=== PATIENT | female | born 1960 | race Caucasian/White ===

== ENCOUNTER 2020-05-03 10:29 | Observation (INO) | payer BC ==
[2020-05-03] MEDS ORDERED: Sodium Chloride 0.9% 10 ML Syringe FLUSH PRN (10:38)
--- NOTE | 2020-05-03 10:55 | EDM.PDOC ---
ED HPI GENERAL MEDICAL PROBLEM - General Chief Complaint: Chest Pain Stated Complaint: Chest Pain Time Seen by Provider: 05/03/20 10:38 Source of Information: Reports: Patient History Limitations: Reports: No Limitations - History of Present Illness INITIAL COMMENTS - FREE TEXT/NARRATIVE: Patient comes to ER with what she feels is a return of her Covid symptoms that she experienced at the end of Feb/early March when she was found to have the infection. Increased SOB since Friday. Chest ache left side today. No change in discomfort with chest palpation/deep breath/positional change. Has felt hot at times but no fever. Still has cough. Nausea but no emesis/bowel change. Has continued neuropathic discomfort inner forearms that radiates down towards hands. Initially pain was an 8 but is now a 2/dull ache only. - Related Data Allergies Allergy/AdvReac Type Severity Reaction Status Date / Time No Known Allergies Allergy Verified 05/03/20 10:30 Home Meds: Home Meds Omeprazole 20 mg PO DAILY 01/22/14 [History] hydrOXYzine HCL [hydrOXYzine] 20 mg PO Q8H PRN 01/22/14 [History] Albuterol/Ipratropium [DuoNeb 3.0-0.5 MG/3 ML] 3 ml NEB Q6HRRT #30 neb 02/19/16 [Rx] Amoxicillin/Clavulanate K [Augmentin 875 MG/125 MG] 1 tab PO Q12HR #20 tablet 02/19/16 [Rx] Fluconazole [Diflucan] 150 mg PO DAILY PRN #3 tablet 02/19/16 [Rx] Sertraline [Zoloft] 75 mg PO BEDTIME 02/19/16 [History] atenoloL [Tenormin] 25 mg PO DAILY 02/19/16 [History] guaiFENesin/Dextromethorphan [Mucinex Dm ER 1,200-60 mg Tab] 1 each PO BID #20 tbmp.12hr 02/19/16 [Rx] Past Medical History HEENT History: Reports: Allergic Rhinitis, Impaired Vision, Other (See Below) Other HEENT History: Contact lenses, glasses Cardiovascular History: Reports: Arrhythmia, CAD, Heart Murmur, Hypertension, Syncope, Other (See Below) Other Cardiovascular History: Mild aortic valve insufficiency and tricuspid valve insufficiency by echocardiogram, bradycardia with previous syncopal episode requiring hospitalization on 01/02/10, first degree AV block on 11/20/11 Respiratory History: Reports: Bronchitis, Recurrent, Pneumonia, Recurrent, Other (See Below) Other Respiratory History: Despite chest x-ray findings no history of asthma with previous negative PFTs 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: Dysfunctional Uterine Bleeding, Fibroids, Other 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: Surgical menopause as below Musculoskeletal History: Reports: Arthritis, Back Pain, Chronic, Fracture, Osteoarthritis, Other (See Below) Other Musculoskeletal History: Right-sided Bansal's cyst, right distal fibular fracture on 01/22/14, scoliosis, patellar chondromalacia with grade 1 strain/tear of the medial collateral ligament of the left knee by MRI as below Neurological History: Reports: Brain Injury, Concussion, Headaches, Chronic, Migraines, Other (See Below) Other Neuro History: 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 secondary to syncopal episode Psychiatric History: Reports: Anxiety, Depression, Other (See Below) Other Psychiatric History: Chronic insomnia Endocrine/Metabolic History: Reports: Other (See Below) Other Endocrine/Metabolic History: 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 - Infectious Disease History Infectious Disease History: Reports: Chicken Pox, Mumps, Other (See Below) Other Infectious Disease History: swine flu in about 2006 - Past Surgical History HEENT Surgical History: Reports: Adenoidectomy, Tonsillectomy, Other (See Below) GI Surgical History: Reports: Appendectomy, Cholecystectomy, Other (See Below) Female Surgical History: Reports: Hysterectomy, Other (See Below) Musculoskeletal Surgical History: Reports: Carpal Tunnel, Other (See Below) - Past Imaging History Past Imaging History: Reports: Cardiac Echo, CAT Scan, Mammogram, MRI, PFT, Stress Testing, Ultrasound, Venous Doppler, Other (See Below) Social & Family History - Family History Cardiac: Reports: Bypass, CAD, High Cholesterol, Hypertension, CA, Other (See Below) Other Cardiac Family History: Father with initial CA in his 50s with 4 vessel CABG in his late 50s early 60s, paternal grandfather with fatal CA in his 60s, paternal aunt with three-vessel CABG in her late 50s, sister with hyperlipidemia, hypertension in mother and 2 sisters, Respiratory: Reports: Asthma, Other (See Below) Other Respiratory Family Hisory: Son with asthma Neurological: Reports: Migraines, Other (See Below) Other Neurological Family History: migraine headaches in sister, son, and daughter Psychiatric: Reports: Anxiety, Depression, Other (See Below) Other Psychiatric Family History: Daughter with severe anxiety aggression disorder Endocrine/Metabolic: Reports: Hypothyroidism, Other (See Below) Other Endocrine/Metabolic Family History: Mother with hypothyroidism Oncologic: Reports: Breast, Other (See Below) Other Oncologic Family History: Paternal grandmother with breast cancer - Caffeine Use Caffeine Use: Reports: Soda (One soda per day). Denies: Coffee, Energy Drinks, Tea - Living Situation & Occupation Living situation: Reports: , Alone Occupation: Employed ED ROS GENERAL - Review of Systems Review Of Systems: Comprehensive ROS is negative, except as noted in HPI. ED EXAM, GENERAL - Physical Exam Exam: See Below Exam Limited By: No Limitations General Appearance: Alert, WD/WN, Anxious, Obese Eye Exam: Bilateral Eye: EOMI, PERRL Ears: Normal External Exam, Normal Canal, Hearing Grossly Normal Nose: No: Nasal Deformity, Nasal Swelling, Nasal Drainage Throat/Mouth: Normal Lips, Normal Voice, No Airway Compromise Head: Atraumatic, Normocephalic Neck: Normal Inspection, Supple, Non-Tender, Full Range of Motion Respiratory/Chest: No Respiratory Distress, Lungs Clear, Normal Breath Sounds, No Accessory Muscle Use, Chest Non-Tender Cardiovascular: Normal Peripheral Pulses, Regular Rate, Rhythm, No Murmur GI/Abdominal: Normal Bowel Sounds, Soft, Non-Tender, No Distention (Female) Exam: Deferred Rectal (Female) Exam: Deferred Back Exam: No: CVA Tenderness (L), CVA Tenderness (R), Muscle Spasm, Paraspinal Tenderness, Vertebral Tenderness Extremities: Normal Range of Motion, Normal Capillary Refill Neurological: Alert, Oriented, Normal Cognition, Normal Gait, Other (equal tone/strength bilat) Psychiatric: Normal Affect, Normal Mood Skin Exam: Warm, Dry, Intact, Normal Color #1 Interpretation EKG Date: 05/03/20 Time: 10:31 Rhythm: Other (sinus bradycardia) Rate (Beats/Min): 51 [place]: Normal P-Wave: Present QRS: Normal ST-T: Normal QT: Normal Comparison: NA - No Prior EKG Course - Vital Signs Last Recorded V/S: Last Vital Signs Temp 36.1 C 05/03/20 10:30 Pulse 49 L 05/03/20 10:46 Resp 14 05/03/20 10:46 BP 131/51 L 05/03/20 10:46 Pulse Ox 99 05/03/20 10:46 - Orders/Labs/Meds Orders: Active Orders 24 hr Category Date Time Status EKG Documentation Completion [RC] ASDIRECTED Care 05/03/20 10:39 Active Chest 2V [CR] Stat Exams 05/03/20 10:38 Taken UA W/MICROSCOPIC [URIN] Stat Lab 05/03/20 10:38 Ordered Sodium Chloride 0.9% [Saline Flush] Med 05/03/20 10:38 Active 10 ml FLUSH ASDIRECTED PRN Saline Lock Insert [OM.PC] Stat Oth 05/03/20 10:38 Ordered Medication Orders Sodium Chloride (Saline Flush) 10 ml FLUSH ASDIRECTED PRN PRN Reason: Keep Vein Open Labs: Laboratory Tests 05/03/20 05/03/20 05/03/20 Range/Units 10:42 10:42 10:42 WBC 6.1 (4.0-10.2) K/uL RBC 4.24 (3.77-5.09) M/uL Hgb 12.7 (11.7-15.5) g/dL Hct 38.3 (34.0-46.0) % MCV 90.3 (84.0-98.0) fL MCH 30.0 (28.2-33.3) pg MCHC 33.2 (31.7-36.0) g/dL RDW 13.4 (11.2-14.1) % Plt Count 208 (150-350) K/uL Neut % (Auto) 48.1 (45.0-80.0) % Lymph % (Auto) 39.3 (10.0-50.0) % [place] % (Auto) 9.1 (2.0-14.0) % Eos % (Auto) 3.3 (0.0-5.0) % Baso % (Auto) 0.2 (0.0-2.0) % Neut # (Auto) 2.95 (1.40-7.00) K/uL Lymph # (Auto) 2.41 (0.50-3.50) K/uL [place] # (Auto) 0.56 (0.00-1.00) K/uL Eos # (Auto) 0.20 (0.00-0.50) K/uL Baso # (Auto) 0.01 (0.00-0.20) K/uL D-Dimer, Quantitative 214 (0-400) ng/mL Sodium 141 (136-145) mmol/L Potassium 3.5 (3.5-5.1) mmol/L Chloride 107 (98-107) mmol/L Carbon Dioxide 26.3 (21.0-32.0) mmol/L BUN 16 (7-18) mg/dL Creatinine 0.80 (0.51-1.17) mg/dL Est Cr Clr Drug Dosing TNP Estimated GFR (MDRD) > 60 mL/min Glucose 134 H (74-106) mg/dL Lactic Acid (0.4-2.0) mmol/L Calcium 8.2 L (8.5-10.1) mg/dL Magnesium 2.0 (1.8-2.4) mg/dL Total Bilirubin 0.3 (0.2-1.0) mg/dL AST 14 L (15-37) U/L ALT 30 (12-78) U/L Alkaline Phosphatase 78 (46-116) IU/L Troponin I 0.000 (0.000-0.056) ng/mL NT-Pro-B Natriuret Pep 402 H (0-125) pg/mL Total Protein 6.7 (6.4-8.2) g/dL Albumin 3.4 (3.4-5.0) g/dL 05/03/20 Range/Units 10:42 WBC (4.0-10.2) K/uL RBC (3.77-5.09) M/uL Hgb (11.7-15.5) g/dL Hct (34.0-46.0) % MCV (84.0-98.0) fL MCH (28.2-33.3) pg MCHC (31.7-36.0) g/dL RDW (11.2-14.1) % Plt Count (150-350) K/uL Neut % (Auto) (45.0-80.0) % Lymph % (Auto) (10.0-50.0) % [place] % (Auto) (2.0-14.0) % Eos % (Auto) (0.0-5.0) % Baso % (Auto) (0.0-2.0) % Neut # (Auto) (1.40-7.00) K/uL Lymph # (Auto) (0.50-3.50) K/uL [place] # (Auto) (0.00-1.00) K/uL Eos # (Auto) (0.00-0.50) K/uL Baso # (Auto) (0.00-0.20) K/uL D-Dimer, Quantitative (0-400) ng/mL Sodium (136-145) mmol/L Potassium (3.5-5.1) mmol/L Chloride (98-107) mmol/L Carbon Dioxide (21.0-32.0) mmol/L BUN (7-18) mg/dL Creatinine (0.51-1.17) mg/dL Est Cr Clr Drug Dosing Estimated GFR (MDRD) mL/min Glucose (74-106) mg/dL Lactic Acid 1.7 (0.4-2.0) mmol/L Calcium (8.5-10.1) mg/dL Magnesium (1.8-2.4) mg/dL Total Bilirubin (0.2-1.0) mg/dL AST (15-37) U/L ALT (12-78) U/L Alkaline Phosphatase (46-116) IU/L Troponin I (0.000-0.056) ng/mL NT-Pro-B Natriuret Pep (0-125) pg/mL Total Protein (6.4-8.2) g/dL Albumin (3.4-5.0) g/dL Meds: Medications Generic Name Dose Route Start Last Admin Trade Name Freq PRN Reason Stop Dose Admin Sodium Chloride 10 ml 05/03/20 10:38 Saline Flush FLUSH ASDIRECTED PRN Keep Vein Open - Radiology Interpretation Free Text/Narrative:: Chest xray: unremarkable for acute changes/pneumothorax/focal infiltrate - Re-Assessments/Exams Free Text/Narrative Re-Assessment/Exam: 05/03/20 10:54 Chest xray and cardiac labs ordered. EKG showed no acute changes suggestive of ischemia Free Text/Narrative Re-Assessment/Exam: 05/03/20 11:39 Labs, including troponin/ddimer all unremarkable overall except for minimally elevated proBNP. Normal EKG except for bradycardia. Symptoms may be related to recent Covid infection/long haul symptoms, or may be due to new early viral illness, however cannot fully rule out cardiac invol vement. Plan at this time is to admit overnight for ongoing cardiac monitoring and serial troponins. Departure - Departure Time of Disposition: 11:40 Disposition: Refer to Observation Condition: Good Clinical Impression: Atypical chest pain, Shortness of breath - Discharge Information *PRESCRIPTION DRUG MONITORING PROGRAM REVIEWED*: Not Applicable *COPY OF PRESCRIPTION DRUG MONITORING REPORT IN PATIENT PATRICIA: Not Applicable Referrals: Ramya Liu PA-C [Primary Care Provider] - Forms: ED Department Discharge Sepsis Event Note (ED) - Evaluation Sepsis Screening Result: No Definite Risk - Focused Exam Vital Signs: Vital Signs Temp Pulse Resp BP Pulse Ox 05/03/20 10:46 49 L 14 131/51 L 99 05/03/20 10:30 36.1 C 57 L 13 148/65 H 98 - Problem List & Annotations (1) Atypical chest pain SNOMED Code(s): 792454649 Code(s): R07.89 - OTHER CHEST PAIN Status: Acute Priority: High Current Visit: Yes Onset Date: 05/03/20 Annotation/Comment:: Left sided chest pain. No pleuritic component. No pnemonia/pneumothorax noted. Similar pain during active Covid infection. EKG/cardiac labs/DDImer normal. Admit for serial labs/cardiac monitoring. (2) Shortness of breath SNOMED Code(s): 062344835 Code(s): R06.02 - SHORTNESS OF BREATH Status: Acute Priority: High Current Visit: Yes Annotation/Comment:: Similar sensation when she had active Covid infection. No focal findings on exam/chest xray. Normal DDimer/O2 sats, respiratory rate. (3) Osteoarthritis SNOMED Code(s): 681239726 Code(s): M19.90 - UNSPECIFIED OSTEOARTHRITIS, UNSPECIFIED SITE Status: Chronic Priority: Low Current Visit: No Annotation/Comment:: stable by her history Qualifiers: Osteoarthritis location: multiple joints Osteoarthritis type: primary (4) Peptic reflux disease SNOMED Code(s): 539543774 Code(s): K21.9 - GASTRO-ESOPHAGEAL REFLUX DISEASE WITHOUT ESOPHAGITIS Status: Chronic Priority: Low Current Visit: No Annotation/Comment:: Stable by history (5) Hypertension SNOMED Code(s): 31798496 Code(s): I10 - ESSENTIAL (PRIMARY) HYPERTENSION Status: Chronic Priority: Medium Current Visit: No Annotation/Comment:: stable per history, observe trends Qualifiers: Hypertension type: essential hypertension Qualified Code(s): I10 - Essential (primary) hypertension (6) Mixed anxiety depressive disorder SNOMED Code(s): 236990171 Code(s): F41.8 - OTHER SPECIFIED ANXIETY DISORDERS Status: Chronic Priority: Medium Current Visit: No Annotation/Comment:: Stable by history (7) Bradycardia SNOMED Code(s): 50591511 Code(s): R00.1 - BRADYCARDIA, UNSPECIFIED Status: Chronic Priority: Low Current Visit: Yes Annotation/Comment:: observe - Problem List Review Problem List Initiated/Reviewed/Updated: Yes - My Orders Last 24 Hours: My Active Orders 05/03/20 10:38 Chest 2V [CR] Stat UA W/MICROSCOPIC [URIN] Stat Sodium Chloride 0.9% [Saline Flush] 10 ml FLUSH ASDIRECTED PRN Saline Lock Insert [OM.PC] Stat 05/03/20 10:39 EKG Documentation Completion [RC] ASDIRECTED - Assessment/Plan Admission H&P: Please use this note as an admission H&P Last 24 Hours: My Active Orders 05/03/20 10:38 Chest 2V [CR] Stat UA W/MICROSCOPIC [URIN] Stat Sodium Chloride 0.9% [Saline Flush] 10 ml FLUSH ASDIRECTED PRN Saline Lock Insert [OM.PC] Stat 05/03/20 10:39 EKG Documentation Completion [RC] ASDIRECTED Assessment:: as above. Stable and suitable for general supervision. Plan: Telemetry/serial troponin measurements. Anticipate discharge home tomorrow if patient remains stable and workup is normal.
[2020-05-03 11:11] LABS: CHLORIDE,CL 107 mmol/L (98-107); SODIUM,NA 141 mmol/L (136-145)
[2020-05-03] MEDS ORDERED: Pantoprazole 40 MG Vial IVPUSH ONE (11:51)
[2020-05-03] MEDS ORDERED: Ketorolac 30 MG/ML SDV IVPUSH ONE (11:52)
[2020-05-03] MEDS ORDERED: Ondansetron 4 MG/2 ML SDV IVPUSH PRN (12:13)
[2020-05-03] MEDS: Albuterol/Ipratropium 4 GM Inhalation Spray INH SCH ×3 (12:47→20:04)
--- OUTSIDE RECORDS SUMMARY | 2020-05-03 15:14 | XMSREPORT ---
:1960 Author Organization Address [address] [place] [address] Phone Reason For Referral No Reason for Referral was given. History Of Present Illness No HPI available. Assessments No Assessments available Plan of Care Name Dates Details Planned Observations Hospital Referral Request
--- OUTSIDE RECORDS SUMMARY | 2020-05-03 15:14 | XMSREPORT ---
:1960 Author Name Clinton Peace Address Unavailable Unavailable , Care Team Providers Name Role Phone Clinton Peace Unavailable Unavailable Gulsviviktor P.A. Unavailable Unavailable Gulsvig Unavailable Unavailable Unavailable Unavailable Unavailable Reason for Referral Patient referred for observation on 05/03/2020 to [facility] Assessments No Information Problems GERD (gastroesophageal reflux disease) (530.81) (K21.9) Allergic rhinitis (477.9) (J30.9) Osteoarthritis of joint of toe of right foot (715.97) (M19.0 71) Anxiety (300.00) (F41.9) Joint pain (719.40) (M25.50) Arthritis (716.90) (M19.90) CRP elevated (790.95) (R79.82) Lumbar disc disease (722.93) (M51.9) Lumbar spine pain (724.2) (M54.5) SI (sacroiliac) joint dysfunction (724.6) (M53.3) Fatigue (780.79) (R53.83) Weakness generalized (780.79) (R53.1) Abdominal pain, colicky (789.00) (R10.84) Weight gain, abnormal (783.1) (R63.5) Nausea (787.02) (R11.0) Encounter for screening colonoscopy (V76.51) (Z12.11) URI with cough and congestion (465.9) (J06.9) Breast lump on right side at 9 o'clock position (611.72) (N6 3.15) Breast cancer screening by mammogram (V76.12) (Z12.31) Hypokalemia (276.8) (E87.6) Hypomagnesemia (275.2) (E83.42) Migraine (346.90) (G43.909) Essential hypertension, benign (401.1) (I10) Bronchitis, acute (466.0) (J20.9) Atypical chest pain (786.59) (R07.89) Allergies and Adverse Reactions No Known Drug Allergies (Allergy) Medications PriLOSEC OTC 20 MG Oral Tablet Delayed Release; TAKE 1 TABLE T DAILY. Start: 10-Jan-2014 Refills: 0 guaiFENesin-Codeine 100-10 MG/5ML Oral S olution; TAKE 10 ML EVERY 4 HOURS NEEDED Tayler Carrasco Start: 02-Jul-2018 Quantity: 240 Refills: 0 SUMAtriptan Succinate 25 MG Oral Tablet; TAKE 1 TABLET FOR MIGRAINE RELIEF. MAY REPEAT EVERY 2 HOURS. MAX 200MG/DAY. Tayler Carrasco Start: 9 Quantity: 10 Refills: 0 Lisinopril 10 MG Oral Tablet; TAKE ONE TABLET BY MOUTH DAILY DIRECTED Tayler Carrasco Start: 19-Jan-2019 Quantity: 30 Refills: 0 Sertraline HCl - 100 MG Oral Tablet; TAKE ONE TABLET ( 100MG) BY MOUTH DAILY Tayler Carrasco Start: 09-Mar-2019 Quantity: 30 Refills: 0 Azithromycin 250 MG Oral Tablet; TAKE 2 TABLETS ON DAY 1 THEN TAKE 1 TABLET A DAY FOR 4 DAYS. Tayler Carrasco Start: 26-Mar-2019 Quantity: 1 6 Tablet Pack Refills: 0 Procedures History of Appendectomy Status: Complete d History of Tonsillectomy Status: Complet ed History of Neuroplasty Decompression Median Nerve At Carpal Status: Completed Tunnel History of Gallbladder Surgery Status: C ompleted History of Hysterectomy Status: Complete d Immunizations Pneumovax 23 25 MCG/0.5ML Injection Injectable On: 22-Apr-20 06 Pneumovax 23 25 MCG/0.5ML Injection Injectable On: 05-Oct-19 12 Pneumovax 23 25 MCG/0.5ML Injection Injectable On: 9 MMR On: 18-Jun-2007 MMR On: 20-Jul-2007 [facility] TD > AGE 7 (Record Only) On: 17-Apr-2015 Lot #: [id number], [employer]i Flucelvax Quadrivalent 0.5 ML Intramuscular Suspension Prefilled Syringe On: 28-Jun-2016 Lot #: [id number], SE[employer]IRUS Fluzone Quadrivalent 0.5 ML Intramuscular Suspension On: 9 Family History Family history of breast cancer (V16.3) (Z80.3) Status: Acti ve Family history of hypertension (V17.49) (Z82.49) Status: Act jc Family history of high cholesterol (V18.19) (Z83.42) Status: Active Social History - Never smoked tobacco Plan of Treatment Planned Goals not documented Results No Known Results Results not documented Encounters Appointment; Andre, Nurse 30-Mar-2019 16:30 Encounter Diagnosis: Problem not documented
[2020-05-03] MEDS: Acetaminophen 325 MG Tab PO PRN (16:25)
[2020-05-03] MEDS ORDERED: predniSONE 20 MG Tab PO ONE ×2 (17:47→20:00)
[2020-05-03] MEDS ORDERED: Omeprazole 20 MG Cap.CR PO PRN (20:21)
[2020-05-03] MEDS ORDERED: Losartan 50 MG Tab PO SCH (21:00)
[2020-05-03] MEDS ORDERED: Sertraline 50 MG Tab PO SCH (21:00)
[2020-05-04] MEDS: Albuterol/Ipratropium 4 GM Inhalation Spray INH SCH ×2 (07:37→11:41)
[2020-05-04] MEDS ORDERED: amLODIPine 5 MG Tab PO SCH (08:00)
[2020-05-04] MEDS ORDERED: Isosorbide Mononitrate 30 MG Tab.ER PO SCH (08:00)
[2020-05-04 08:01] LABS: CHLORIDE,CL 105 mmol/L (98-107); SODIUM,NA 139 mmol/L (136-145)
--- NOTE | 2020-05-04 09:36 | PCM.DCSUM1 ---
Discharge Summary - Hospital Course Brief History: Patient admitted for r/o [place] protocol due to chest discomfort/shortness of breath. Diagnosis: Stroke: No - Discharge Data Discharge Date: 05/04/20 Discharge Disposition: Home, Self-Care 01 Condition: Good - Referral to Home Health Primary Care Physician: Ramya Liu PA-C - Discharge Diagnosis/Problem(s) (1) Atypical chest pain SNOMED Code(s): 213238040 ICD Code: R07.89 - OTHER CHEST PAIN Status: Acute Priority: High Current Visit: Yes Onset Date: 05/03/20 Problem Details: Left sided chest pain. Resolved since admission. No pleuritic component. No pnemonia/pneumothorax noted. Similar pain during active Covid infection. EKG/cardiac labs/DDImer normal during course of admission. Does have stress test scheduled next week for further evalation of her ongoing bradycardia. (2) Shortness of breath SNOMED Code(s): 737339996 ICD Code: R06.02 - SHORTNESS OF BREATH Status: Acute Priority: High Current Visit: Yes Problem Details: Similar sensation when she had active Covid infection. No focal findings on exam/chest xray. Normal DDimer/O2 sats, respiratory rate. May be related to persistent lung effects from recent Covid infection. She feels better since starting Combivent. Will continue this after discharge. Radiology did not some peribronchilar cuffing on xray consistent with reactive airway changes. (3) COVID-19 SNOMED Code(s): 400985914 ICD Code: U07.1 - COVID-19 Status: Chronic Priority: Medium Current Visit: Yes Problem Details: History of recent Covid infection last month with long-hauler symptoms. Ongoing issues with intermittent fatigue, shortness of breath, body aches, GI complaints, and migraines. (4) Osteoarthritis SNOMED Code(s): 688442401 ICD Code: M19.90 - UNSPECIFIED OSTEOARTHRITIS, UNSPECIFIED SITE Status: Chronic Priority: Low Current Visit: No Problem Details: stable by her history Qualifiers: Osteoarthritis location: multiple joints Osteoarthritis type: primary (5) Peptic reflux disease SNOMED Code(s): 238112634 ICD Code: K21.9 - GASTRO-ESOPHAGEAL REFLUX DISEASE WITHOUT ESOPHAGITIS Status: Chronic Priority: Low Current Visit: No Problem Details: Stable by history (6) Hypertension SNOMED Code(s): 40223603 ICD Code: I10 - ESSENTIAL (PRIMARY) HYPERTENSION Status: Chronic Priority: Medium Current Visit: No Problem Details: stable per history, observe trends Qualifiers: Hypertension type: essential hypertension Qualified Code(s): I10 - Essential (primary) hypertension (7) Mixed anxiety depressive disorder SNOMED Code(s): 902436052 ICD Code: F41.8 - OTHER SPECIFIED ANXIETY DISORDERS Status: Chronic Priority: Medium Current Visit: No Problem Details: Stable by history (8) Bradycardia SNOMED Code(s): 19619029 ICD Code: R00.1 - BRADYCARDIA, UNSPECIFIED Status: Chronic Priority: Low Current Visit: Yes Problem Details: Patient is undergoing cardiac evalution for her persistent bradycardia (asymptomatic) and has stress test scheduled for next week. - Patient Summary/Data Hospital Course: Unremarkable course. Pain-free after leaving ER. SOB improved with Combivent. No unusual changes noted on telemetry. She did get some stomach upset after eating dinner that she felt was due to the food served to her/not her normal diet. Troponins negative. EKG this morning showed bradycardia but no other changes. OK to be discharged home. Has stress test next Friday for further eval of bradycardia through her usual providers. Precautions reviewed. To return to ER PRN acute problems/worsening. Otherwise to follow up with PCP in 2 weeks to see how she is doing. - Patient Instructions Diet: Anti-Inflammatory Activity: As Tolerated Driving: May Drive Today Showering/Bathing: May Shower Other/Special Instructions: Follow up with your primary provider in 2 weeks to review how you are doing/review ongoing concerns. Follow up in ER if you have sudden acute problems/worsening. Continue the inahaler as we discussed. Dietary and lifestyle changes encouraged as discussed. Start digestive enzymes with meals! - Discharge Plan *PRESCRIPTION DRUG MONITORING PROGRAM REVIEWED*: Not Applicable *COPY OF PRESCRIPTION DRUG MONITORING REPORT IN PATIENT PATRICIA: Not Applicable Prescriptions/Med Rec: Albuterol Sulfate [Albuterol Sulfate Hfa] 8.5 gm IH ASDIRECTED PRN #1 [email or web address] PRN Reason: Shortness Of Breath Home Medications: Home Meds Omeprazole 20 mg PO DAILY PRN 01/22/14 [History] Furosemide [Lasix] 20 mg PO DAILY PRN 05/03/20 [History] Isosorbide Mononitrate [Imdur] 30 mg PO DAILY 05/03/20 [History] Losartan Potassium 25 mg PO BEDTIME 05/03/20 [History] Sertraline [Zoloft] 100 mg PO BEDTIME 05/03/20 [History] amLODIPine [Norvasc] 10 mg PO DAILY 05/03/20 [History] Albuterol Sulfate [Albuterol Sulfate Hfa] 8.5 gm IH ASDIRECTED PRN #1 [email or web address] 05/04/20 [Rx] Albuterol/Ipratropium [Combivent Respimat] 1 gm INH QID inhaler 05/04/20 [Rx] Forms: ED Department Discharge Referrals: Ramya Liu PA-C [Primary Care Provider] - - Discharge Summary/Plan Comment DC Time >30 min.: Yes (Has ride home available around noon today) - General Info Date of Service: 05/04/20 Admission Dx/Problem (Free Text: Chest pain/SOB Subjective Update: Patient is pain-free. SOB has improved. No new complaints. Functional Status: Reports: Pain Controlled, Tolerating Diet, Ambulating, Urinating. Denies: New Symptoms - Review of Systems General: Reports: No Symptoms HEENT: Reports: No Symptoms Pulmonary: Reports: No Symptoms Cardiovascular: Reports: No Symptoms. Denies: Chest Pain, Dyspnea on Exertion, Lightheadedness Gastrointestinal: Reports: Other (some indigestion last night after dinner) Genitourinary: Reports: No Symptoms Musculoskeletal: Reports: Other (no acute changes from baseline) Neurological: Reports: No Symptoms Psychiatric: Reports: No Symptoms - Patient Data Vitals - Most Recent: Last Vital Signs Temp 36.7 C 05/04/20 08:00 Pulse 131 H 05/04/20 08:00 Resp 12 05/04/20 08:00 BP 136/61 05/04/20 07:38 Pulse Ox 95 05/04/20 08:00 Weight - Most Recent: 91.626 kg I&O - Last 24 hours: Intake & Output 05/03/20 05/04/20 05/04/20 22:59 06:59 14:59 Intake Total 800 240 Output Total 300 Balance 500 240 Lab Results - Last 24 hrs: Laboratory Results - last 24 hr 05/03/20 05/03/20 05/03/20 Range/Units 10:42 10:42 10:42 WBC 6.1 (4.0-10.2) K/uL RBC 4.24 (3.77-5.09) M/uL Hgb 12.7 (11.7-15.5) g/dL Hct 38.3 (34.0-46.0) % MCV 90.3 (84.0-98.0) fL MCH 30.0 (28.2-33.3) pg MCHC 33.2 (31.7-36.0) g/dL RDW 13.4 (11.2-14.1) % Plt Count 208 (150-350) K/uL Neut % (Auto) 48.1 (45.0-80.0) % Lymph % (Auto) 39.3 (10.0-50.0) % Lane % (Auto) 9.1 (2.0-14.0) % Eos % (Auto) 3.3 (0.0-5.0) % Baso % (Auto) 0.2 (0.0-2.0) % Neut # (Auto) 2.95 (1.40-7.00) K/uL Lymph # (Auto) 2.41 (0.50-3.50) K/uL Lane # (Auto) 0.56 (0.00-1.00) K/uL Eos # (Auto) 0.20 (0.00-0.50) K/uL Baso # (Auto) 0.01 (0.00-0.20) K/uL D-Dimer, Quantitative 214 (0-400) ng/mL Sodium 141 (136-145) mmol/L Potassium 3.5 (3.5-5.1) mmol/L Chloride 107 (98-107) mmol/L Carbon Dioxide 26.3 (21.0-32.0) mmol/L BUN 16 (7-18) mg/dL Creatinine 0.80 (0.51-1.17) mg/dL Est Cr Clr Drug Dosing TNP Estimated GFR (MDRD) > 60 mL/min Glucose 134 H (74-106) mg/dL Lactic Acid (0.4-2.0) mmol/L Calcium 8.2 L (8.5-10.1) mg/dL Magnesium 2.0 (1.8-2.4) mg/dL Total Bilirubin 0.3 (0.2-1.0) mg/dL AST 14 L (15-37) U/L ALT 30 (12-78) U/L Alkaline Phosphatase 78 (46-116) IU/L Troponin I 0.000 (0.000-0.056) ng/mL C-Reactive Protein (<=0.9) mg/dL NT-Pro-B Natriuret Pep 402 H (0-125) pg/mL Total Protein 6.7 (6.4-8.2) g/dL Albumin 3.4 (3.4-5.0) g/dL Specimen Type Urine Color Urine Appearance Urine pH (5.0-9.0) Ur Specific [place] (1.005-1.030) Urine Protein (NEGATIVE) mg/dL Urine Glucose (UA) (NEGATIVE) mg/dL Urine Ketones (NEGATIVE) mg/dL Urine Occult Blood (NEGATIVE) Urine Nitrite (NEGATIVE) Urine Bilirubin (NEGATIVE) Urine Urobilinogen (0.2-1.0) E.U./dL Ur Leukocyte Esterase (NEGATIVE) Urine RBC /HPF Urine WBC /HPF Amorphous Sediment (0/HPF) /HPF Urine Bacteria (NONE TO FEW) /HPF 05/03/20 05/03/20 05/03/20 Range/Units 10:42 16:20 20:00 WBC (4.0-10.2) K/uL RBC (3.77-5.09) M/uL Hgb (11.7-15.5) g/dL Hct (34.0-46.0) % MCV (84.0-98.0) fL MCH (28.2-33.3) pg MCHC (31.7-36.0) g/dL RDW (11.2-14.1) % Plt Count (150-350) K/uL Neut % (Auto) (45.0-80.0) % Lymph % (Auto) (10.0-50.0) % Lane % (Auto) (2.0-14.0) % Eos % (Auto) (0.0-5.0) % Baso % (Auto) (0.0-2.0) % Neut # (Auto) (1.40-7.00) K/uL Lymph # (Auto) (0.50-3.50) K/uL Lane # (Auto) (0.00-1.00) K/uL Eos # (Auto) (0.00-0.50) K/uL Baso # (Auto) (0.00-0.20) K/uL D-Dimer, Quantitative (0-400) ng/mL Sodium (136-145) mmol/L Potassium (3.5-5.1) mmol/L Chloride (98-107) mmol/L Carbon Dioxide (21.0-32.0) mmol/L BUN (7-18) mg/dL Creatinine (0.51-1.17) mg/dL Est Cr Clr Drug Dosing Estimated GFR (MDRD) mL/min Glucose (74-106) mg/dL Lactic Acid 1.7 (0.4-2.0) mmol/L Calcium (8.5-10.1) mg/dL Magnesium (1.8-2.4) mg/dL Total Bilirubin (0.2-1.0) mg/dL AST (15-37) U/L ALT (12-78) U/L Alkaline Phosphatase (46-116) IU/L Troponin I 0.000 (0.000-0.056) ng/mL C-Reactive Protein (<=0.9) mg/dL NT-Pro-B Natriuret Pep (0-125) pg/mL Total Protein (6.4-8.2) g/dL Albumin (3.4-5.0) g/dL Specimen Type Urinblad Urine Color Yellow Urine Appearance Cloudy Urine pH 5.0 (5.0-9.0) Ur Specific [place] >= 1.030 (1.005-1.030) Urine Protein Negative (NEGATIVE) mg/dL Urine Glucose (UA) Negative (NEGATIVE) mg/dL Urine Ketones Negative (NEGATIVE) mg/dL Urine Occult Blood Negative (NEGATIVE) Urine Nitrite Negative (NEGATIVE) Urine Bilirubin Negative (NEGATIVE) Urine Urobilinogen 0.2 (0.2-1.0) E.U./dL Ur Leukocyte Esterase Negative (NEGATIVE) Urine RBC Not seen /HPF Urine WBC Not seen /HPF Amorphous Sediment Many H (0/HPF) /HPF Urine Bacteria Not seen (NONE TO FEW) /HPF 05/04/20 05/04/20 Range/Units 07:26 07:26 WBC 8.1 (4.0-10.2) K/uL RBC 4.43 (3.77-5.09) M/uL Hgb 13.1 (11.7-15.5) g/dL Hct 39.6 (34.0-46.0) % MCV 89.4 (84.0-98.0) fL MCH 29.6 (28.2-33.3) pg MCHC 33.1 (31.7-36.0) g/dL RDW 13.4 (11.2-14.1) % Plt Count 209 (150-350) K/uL Neut % (Auto) 81.8 H (45.0-80.0) % Lymph % (Auto) 14.3 (10.0-50.0) % Lane % (Auto) 3.7 (2.0-14.0) % Eos % (Auto) 0.1 (0.0-5.0) % Baso % (Auto) 0.1 (0.0-2.0) % Neut # (Auto) 6.59 (1.40-7.00) K/uL Lymph # (Auto) 1.15 (0.50-3.50) K/uL Lane # (Auto) 0.30 (0.00-1.00) K/uL Eos # (Auto) 0.01 (0.00-0.50) K/uL Baso # (Auto) 0.01 (0.00-0.20) K/uL D-Dimer, Quantitative (0-400) ng/mL Sodium 139 (136-145) mmol/L Potassium 4.3 (3.5-5.1) mmol/L Chloride 105 (98-107) mmol/L Carbon Dioxide 25.6 (21.0-32.0) mmol/L BUN 17 (7-18) mg/dL Creatinine 0.79 (0.51-1.17) mg/dL Est Cr Clr Drug Dosing 72.66 Estimated GFR (MDRD) > 60 mL/min Glucose 120 H (74-106) mg/dL Lactic Acid (0.4-2.0) mmol/L Calcium 8.8 (8.5-10.1) mg/dL Magnesium (1.8-2.4) mg/dL Total Bilirubin 0.4 (0.2-1.0) mg/dL AST 18 (15-37) U/L ALT 31 (12-78) U/L Alkaline Phosphatase 79 (46-116) IU/L Troponin I 0.000 (0.000-0.056) ng/mL C-Reactive Protein 0.5 (<=0.9) mg/dL NT-Pro-B Natriuret Pep (0-125) pg/mL Total Protein 7.0 (6.4-8.2) g/dL Albumin 3.4 (3.4-5.0) g/dL Specimen Type Urine Color Urine Appearance Urine pH (5.0-9.0) Ur Specific [place] (1.005-1.030) Urine Protein (NEGATIVE) mg/dL Urine Glucose (UA) (NEGATIVE) mg/dL Urine Ketones (NEGATIVE) mg/dL Urine Occult Blood (NEGATIVE) Urine Nitrite (NEGATIVE) Urine Bilirubin (NEGATIVE) Urine Urobilinogen (0.2-1.0) E.U./dL Ur Leukocyte Esterase (NEGATIVE) Urine RBC /HPF Urine WBC /HPF Amorphous Sediment (0/HPF) /HPF Urine Bacteria (NONE TO FEW) /HPF Med Orders - Current: Current Medications Acetaminophen (Tylenol) 650 mg PO Q4H PRN PRN Reason: analgesia/fever Last Admin: 05/03/20 16:25 Dose: 650 mg Documented by: Albuterol/Ipratropium (Combivent Respimat) 1 gm INH QID [facility] Last Admin: 05/04/20 07:37 Dose: 1 puff Documented by: Amlodipine Besylate (Norvasc) 10 mg PO DAILY [facility] Last Admin: 05/04/20 07:38 Dose: 10 mg Documented by: Isosorbide Mononitrate (Imdur) 30 mg PO DAILY [facility] Last Admin: 05/04/20 07:37 Dose: 30 mg Documented by: Losartan Potassium (Cozaar) 25 mg PO BEDTIME [facility] Last Admin: 05/03/20 20:54 Dose: 25 mg Documented by: Omeprazole (Omeprazole) 20 mg PO DAILY PRN PRN Reason: GERD Ondansetron HCl (Zofran) 4 mg IVPUSH Q4H PRN PRN Reason: Nausea/Vomiting Last Admin: 05/03/20 12:45 Dose: 4 mg Documented by: Sertraline HCl (Zoloft) 100 mg PO BEDTIME [facility] Last Admin: 05/03/20 20:54 Dose: 100 mg Documented by: Sodium Chloride (Saline Flush) 10 ml FLUSH ASDIRECTED PRN PRN Reason: Keep Vein Open Discontinued Medications Ketorolac Tromethamine (Toradol) 30 mg IVPUSH ONETIME ONE Stop: 05/03/20 11:53 Last Admin: 05/03/20 12:46 Dose: 30 mg Documented by: Losartan Potassium (Cozaar) 25 mg PO BEDTIME MARK Pantoprazole Sodium (Protonix Iv) 40 mg IVPUSH ONETIME ONE Stop: 05/03/20 11:52 Last Admin: 05/03/20 12:45 Dose: 40 mg Documented by: Prednisone (Prednisone) 20 mg PO ONETIME ONE Stop: 05/03/20 17:48 Last Admin: 05/03/20 18:20 Dose: Not Given Documented by: Prednisone (Prednisone) 20 mg PO ONETIME ONE Stop: 05/03/20 20:01 Last Admin: 05/03/20 20:02 Dose: 20 mg Documented by: Sertraline HCl (Zoloft) 100 mg PO BEDTIME MARK - Exam General: Reports: Alert, Oriented, Cooperative, No Acute Distress HEENT: Reports: Pupils Equal, Pupils Reactive, EOMI, Mucous Membr. Moist/[place] Neck: Reports: Supple Lungs: Reports: Clear to Auscultation, Normal Respiratory Effort Cardiovascular: Reports: No Murmurs, Bradycardia GI/Abdominal Exam: Normal Bowel Sounds, Soft, No Distention, Other (mild discomfort with palpation of abdomen periumbilically). No: Guarding, Rigid, Rebound (Female) Exam: Deferred Rectal (Female) Exam: Deferred Back Exam: Denies: CVA Tenderness (L), CVA Tenderness (R), Muscle Spasm Extremities: Normal Inspection, Normal Capillary Refill Skin: Reports: Warm, Dry Neurological: Reports: No New Focal Deficit Psy/Mental Status: Reports: Alert, Normal Affect, Normal Mood #1 Interpretation EKG Date: 05/04/20 Time: 07:04 Rhythm: Other (bradycardia) Rate (Beats/Min): 51 [place]: Normal P-Wave: Present QRS: Normal ST-T: Normal QT: Normal Comparison: No Change
[2020-05-04] MEDS: Acetaminophen 325 MG Tab PO PRN (11:41)
[2020-05-04 12:59] VITALS: BP 114/52; PULSE 51
[2020-05-04] MEDS ORDERED: Sertraline 50 MG Tab PO SCH (20:00)
[2020-05-04] MEDS ORDERED: Losartan 50 MG Tab PO SCH (20:00)
== END 2020-05-04 13:15 | disposition home or self-care (01) ==
LOC: LL.ED 10:29 → LL.MS 11:37
PROVIDERS: ADMIT Emergency Medicine; ATTEND Emergency Medicine
DX: R07.89 Other chest pain (principal); I25.10 Atherosclerotic heart disease of native coronary artery without angina pectoris; I10 Essential (primary) hypertension; G89.29 Other chronic pain; F51.04 Psychophysiologic insomnia; G43.909 Migraine, unspecified, not intractable, without status migrainosus; E78.00 Pure hypercholesterolemia, unspecified; I25.2 Old myocardial infarction; E03.9 Hypothyroidism, unspecified; F41.8 Other specified anxiety disorders; K21.9 Gastro-esophageal reflux disease without esophagitis; R00.1 Bradycardia, unspecified; Z79.899 Other long term (current) drug therapy; Z98.890 Other specified postprocedural states; Z90.49 Acquired absence of other specified parts of digestive tract; Z82.49 Family history of ischemic heart disease and other diseases of the circulatory system
CPT/HCPCS: 36415; 71046; 80053; 81001; 83605; 83735; 83880; 84484; 85025; 85379; 86140; 93005; 94640; 96374; 96375; 99285-25; A9270-GY; C9113; G0378; J1885; J2405; J7512

== ENCOUNTER 2021-03-26 11:16 | Emergency (ER) | payer BC ==
[2021-03-26] MEDS ORDERED: Sodium Chloride 0.9% 10 ML Syringe FLUSH PRN (11:36)
[2021-03-26] MEDS ORDERED: Sodium Chloride 0.9% 1,000 ML IV SCH (11:45)
[2021-03-26 12:31] LABS: ANION GAP 11.9 meq/L (7-15); CHLORIDE,CL 105 mmol/L (98-107); SODIUM,NA 142 mmol/L (136-145)
[2021-03-26 15:39] VITALS: BP 113/54; PULSE 51
--- NOTE | 2021-03-26 16:26 | EDM.PDOC ---
ED HPI GENERAL MEDICAL PROBLEM - General Chief Complaint: General Stated Complaint: chest pain, dizzy, back pain, edema, urinary issue Time Seen by Provider: 03/26/21 11:20 Source of Information: Reports: Patient, Old Records, Provider History Limitations: Reports: No Limitations - History of Present Illness INITIAL COMMENTS - FREE TEXT/NARRATIVE: Pt. presents to ER with with numerous complaints. She was initially seen in clinic and sent here for further evaluation and treatment. Pt. states that she has been experiencing increased edema in her lower extremities for the past week. She states that she was started on lasix 20mg once daily for a week, and states that she took 40mg yesterday. She complaints of lightheadedness and states that she feels like she might pass out if she stands up. She states that she also started experiencing some chest discomfort/"tingling" in her L anterior chest area as well. She states that she often experiences intermittent chest discomfort. Pt. was admitted for chest pain and followed up with cardiology post hospitalization in 2019. She underwent a stress echo which she was unable to complete due to dyspnea and lightheadedness. She did see Dr. Herrera who advised cardiolyte and regular echo but neither of these have been done. She also was and is continuing to experiencing bradycardia (rate typically in the low 50s, occasionally in the high 40s) and was advised to follow-up with EP but has not at this point. Pt. states that most of these problems started after having coronavirus last year. Pt. has also been experiencing some acute on chronic low back pain, as well as urinary frequency. She denies any fever or chills. No hematuria. No flank pain. No nausea, vomiting or diarrhea. Pt. does have a history of chronic back pain, but states that it is worse than normal recently. Onset: Today Onset Date: 03/26/21 Location: Reports: Chest, Generalized Quality: Reports: Other (tingling) Severity: Mild Left Chest Pain Score (Numeric/FACES): 3 - Related Data Allergies Allergy/AdvReac Type Severity Reaction Status Date / Time No Known Allergies Allergy Verified 03/26/21 11:22 Home Meds: Home Meds Omeprazole 20 mg PO DAILY PRN 01/22/14 [History] Furosemide [Lasix] 20 mg PO DAILY PRN 05/03/20 [History] Losartan Potassium 25 mg PO BEDTIME 05/03/20 [History] Sertraline [Zoloft] 100 mg PO Q12HR 05/03/20 [History] amLODIPine [Norvasc] 10 mg PO DAILY 05/03/20 [History] Albuterol Sulfate [Albuterol Sulfate Hfa] 8.5 gm IH ASDIRECTED PRN #1 [id number] 05/04/20 [Rx] Albuterol/Ipratropium [Combivent Respimat] 1 gm INH QID inhaler 05/04/20 [Rx] Albuterol [Proventil Neb Soln] 1 each INH QID PRN 07/04/20 [History] Past Medical History HEENT History: Reports: Allergic Rhinitis, Impaired Vision, Other (See Below) Other HEENT History: Contact lenses, glasses Cardiovascular History: Reports: Arrhythmia, CAD, Heart Murmur, Hypertension, Syncope, Other (See Below) Other Cardiovascular History: Mild aortic valve insufficiency and tricuspid valve insufficiency by echocardiogram, bradycardia with previous syncopal episode requiring hospitalization on 01/02/10, first degree AV block on 11/20/11 Respiratory History: Reports: Bronchitis, Recurrent, Pneumonia, Recurrent, Other (See Below) Other Respiratory History: Despite chest x-ray findings no history of asthma with previous negative PFTs SURGICAL SERVICES COORDINATOR History: Reports: Dysfunctional Uterine Bleeding, Fibroids, Other SURGICAL SERVICES COORDINATOR History: Surgical menopause as below Musculoskeletal History: Reports: Arthritis, Back Pain, Chronic, Fracture, Osteoarthritis, Other (See Below) Other Musculoskeletal History: Right-sided Bansal's cyst, right distal fibular fracture on 01/22/14, scoliosis, patellar chondromalacia with grade 1 strain/tear of the medial collateral ligament of the left knee by MRI as below Neurological History: Reports: Brain Injury, Concussion, Headaches, Chronic, Migraines, Other (See Below) Other Neuro History: 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 secondary to syncopal episode Psychiatric History: Reports: Anxiety, Depression, Other (See Below) Other Psychiatric History: Chronic insomnia Endocrine/Metabolic History: Reports: Other (See Below) Other Endocrine/Metabolic History: 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 - Infectious Disease History Infectious Disease History: Reports: Chicken Pox, Mumps, Other (See Below) Other Infectious Disease History: swine flu in about 2006 - Past Surgical History HEENT Surgical History: Reports: Adenoidectomy, Tonsillectomy, Other (See Below) Other HEENT Surgeries/Procedures: Tonsillectomy and adenoidectomy at age 6 GI Surgical History: Reports: Appendectomy, Cholecystectomy, Other (See Below) Other GI Surgeries/Procedures: Appendectomy at age 26, laparoscopic cholecystectomy on 07/08/05 Female Surgical History: Reports: Hysterectomy, Other (See Below) Other Female Surgeries/Procedures: Laparoscopic partial hysterectomy secondary to dysfunctional uterine bleeding in 1996 Musculoskeletal Surgical History: Reports: Carpal Tunnel, Other (See Below) Other Musculoskeletal Surgeries/Procedures:: Right carpal tunnel release on 09/11/11 - Past Imaging History Past Imaging History: Reports: Cardiac Echo, CAT Scan, Mammogram, MRI, PFT, Stress Testing, Ultrasound, Venous Doppler, Other (See Below) Social & Family History - Family History Cardiac: Reports: Bypass, CAD, High Cholesterol, Hypertension, [place], Other (See Below) Other Cardiac Family History: Father with initial NJ in his 50s with 4 vessel CABG in his late 50s early 60s, paternal grandfather with fatal NJ in his 60s, paternal aunt with three-vessel CABG in her late 50s, sister with hyperlipidemia, hypertension in mother and 2 sisters, Respiratory: Reports: Asthma, Other (See Below) Other Respiratory Family Hisory: Son with asthma Neurological: Reports: Migraines, Other (See Below) Other Neurological Family History: migraine headaches in sister, son, and daughter Psychiatric: Reports: Anxiety, Depression, Other (See Below) Other Psychiatric Family History: Daughter with severe anxiety aggression disorder Endocrine/Metabolic: Reports: Hypothyroidism, Other (See Below) Other Endocrine/Metabolic Family History: Mother with hypothyroidism Oncologic: Reports: Breast, Other (See Below) Other Oncologic Family History: Paternal grandmother with breast cancer - Tobacco Use Tobacco Use Status *Q: Never Tobacco User - Caffeine Use Caffeine Use: Reports: Soda (One soda per day). Denies: Coffee, Energy Drinks, Tea - Living Situation & Occupation Living situation: Reports: , Alone Occupation: Employed ED ROS GENERAL - Review of Systems Review Of Systems: See Below Constitutional: Reports: No Symptoms HEENT: Reports: No Symptoms Respiratory: Reports: No Symptoms Cardiovascular: Reports: Chest Pain, Dyspnea on Exertion, Edema, Lightheadedness Endocrine: Reports: No Symptoms GI/Abdominal: Reports: No Symptoms : Reports: Frequency Musculoskeletal: Reports: Back Pain (acute on chronic low back pain) Skin: Reports: No Symptoms Neurological: Reports: No Symptoms Psychiatric: Reports: No Symptoms Hematologic/Lymphatic: Reports: No Symptoms Immunologic: Reports: No Symptoms ED EXAM, GENERAL - Physical Exam Exam: See Below Exam Limited By: No Limitations General Appearance: Alert, WD/WN, No Apparent Distress Eye Exam: Bilateral Eye: EOMI Head: Atraumatic, Normocephalic Neck: Normal Inspection, Supple, Non-Tender, Full Range of Motion Respiratory/Chest: No Respiratory Distress, Lungs Clear, Normal Breath Sounds, No Accessory Muscle Use, Chest Non-Tender Cardiovascular: Normal Peripheral Pulses, No Edema, No JVD, No Murmur, Bradycardia (rate occasionally in the high 40s, consistently in the mid to low 50s. Similar heart rate noted on clinic visits as well.) Peripheral Pulses: 4+: Brachial (L) GI/Abdominal: Soft, Non-Tender, No Distention, No Mass (Female) Exam: Deferred Rectal (Female) Exam: Deferred Extremities: Normal Inspection, Normal Range of Motion, No Pedal Edema, Normal Capillary Refill Neurological: Alert, Oriented, CN II-XII Intact, Normal Cognition, Normal Reflexes, No Motor/Sensory Deficits Psychiatric: Normal Affect, Normal Mood Skin Exam: Warm, Dry, Intact, Normal Color Lymphatic: No Adenopathy #1 Interpretation Rhythm: NSR Amity: Normal P-Wave: Present QRS: Normal ST-T: Normal QT: Normal Course - Vital Signs Last Recorded V/S: Last Vital Signs Temp 36.7 C 03/26/21 11:20 Pulse 51 L 03/26/21 15:30 Resp 12 03/26/21 15:30 BP 113/54 L 03/26/21 15:30 Pulse Ox 100 03/26/21 15:30 - Orders/Labs/Meds Orders: Active Orders 24 hr Category Date Time Status Chest 1V Frontal [CR] Stat Exams 03/26/21 11:33 Taken Peripheral IV Insertion Adult [OM.PC] Routine Oth 03/26/21 11:36 Ordered Labs: Laboratory Tests 03/26/21 03/26/21 03/26/21 Range/Units 11:45 11:52 11:52 WBC 7.4 (4.0-10.2) K/uL RBC 4.57 (3.77-5.09) M/uL Hgb 13.6 (11.7-15.5) g/dL Hct 39.8 (34.0-46.0) % MCV 87.1 (84.0-98.0) fL MCH 29.8 (28.2-33.3) pg MCHC 34.2 (31.7-36.0) g/dL RDW 13.6 (11.2-14.1) % Plt Count 235 (150-350) K/uL Neut % (Auto) 45.8 (45.0-80.0) % Lymph % (Auto) 41.7 (10.0-50.0) % Cavalier % (Auto) 9.6 (2.0-14.0) % Eos % (Auto) 2.6 (0.0-5.0) % Baso % (Auto) 0.3 (0.0-2.0) % Neut # (Auto) 3.40 (1.40-7.00) K/uL Lymph # (Auto) 3.09 (0.50-3.50) K/uL Cavalier # (Auto) 0.71 (0.00-1.00) K/uL Eos # (Auto) 0.19 (0.00-0.50) K/uL Baso # (Auto) 0.02 (0.00-0.20) K/uL PT 9.6 (9.5-12.0) SEC INR 1.0 APTT (24.5-32.8) SEC Sodium (136-145) mmol/L Potassium (3.5-5.1) mmol/L Chloride (98-107) mmol/L Carbon Dioxide (21.0-32.0) mmol/L Anion Gap (7-15) meq/L BUN (7-18) mg/dL Creatinine (0.51-1.17) mg/dL Est Cr Clr Drug Dosing mL/min Estimated GFR (MDRD) mL/min Glucose (70-99) mg/dL Calcium (8.5-10.1) mg/dL Phosphorus (2.6-4.7) mg/dL Magnesium (1.8-2.4) mg/dL Total Bilirubin (0.2-1.0) mg/dL AST (15-37) U/L ALT (12-78) U/L Alkaline Phosphatase (46-116) IU/L Troponin I High Sens (<=51) ng/L C-Reactive Protein (<=0.9) mg/dL NT-Pro-B Natriuret Pep (0-125) pg/mL Total Protein (6.4-8.2) g/dL Albumin (3.4-5.0) g/dL TSH, Ultra Sensitive (0.358-3.740) mIU/mL Specimen Type Urincc Urine Color Yellow Urine Appearance Clear Urine pH 5.0 (5.0-9.0) Ur Specific Reading >= 1.030 (1.005-1.030) Urine Protein Negative (NEGATIVE) mg/dL Urine Glucose (UA) Negative (NEGATIVE) mg/dL Urine Ketones Negative (NEGATIVE) mg/dL Urine Occult Blood Negative (NEGATIVE) Urine Nitrite Negative (NEGATIVE) Urine Bilirubin Negative (NEGATIVE) Urine Urobilinogen 0.2 (0.2-1.0) E.U./dL Ur Leukocyte Esterase Negative (NEGATIVE) 03/26/21 03/26/21 03/26/21 Range/Units 11:52 11:52 15:05 WBC (4.0-10.2) K/uL RBC (3.77-5.09) M/uL Hgb (11.7-15.5) g/dL Hct (34.0-46.0) % MCV (84.0-98.0) fL MCH (28.2-33.3) pg MCHC (31.7-36.0) g/dL RDW (11.2-14.1) % Plt Count (150-350) K/uL Neut % (Auto) (45.0-80.0) % Lymph % (Auto) (10.0-50.0) % Cavalier % (Auto) (2.0-14.0) % Eos % (Auto) (0.0-5.0) % Baso % (Auto) (0.0-2.0) % Neut # (Auto) (1.40-7.00) K/uL Lymph # (Auto) (0.50-3.50) K/uL Cavalier # (Auto) (0.00-1.00) K/uL Eos # (Auto) (0.00-0.50) K/uL Baso # (Auto) (0.00-0.20) K/uL PT (9.5-12.0) SEC INR APTT 25.6 (24.5-32.8) SEC Sodium 142 (136-145) mmol/L Potassium 3.3 L (3.5-5.1) mmol/L Chloride 105 (98-107) mmol/L Carbon Dioxide 28.4 (21.0-32.0) mmol/L Anion Gap 11.9 (7-15) meq/L BUN 15 (7-18) mg/dL Creatinine 0.94 (0.51-1.17) mg/dL Est Cr Clr Drug Dosing 60.32 mL/min Estimated GFR (MDRD) > 60 mL/min Glucose 110 H (70-99) mg/dL Calcium 9.1 (8.5-10.1) mg/dL Phosphorus 4.1 (2.6-4.7) mg/dL Magnesium 2.3 (1.8-2.4) mg/dL Total Bilirubin 0.4 (0.2-1.0) mg/dL AST 16 (15-37) U/L ALT 27 (12-78) U/L Alkaline Phosphatase 90 (46-116) IU/L Troponin I High Sens 5 6 (<=51) ng/L C-Reactive Protein 1.2 H (<=0.9) mg/dL NT-Pro-B Natriuret Pep 319 H (0-125) pg/mL Total Protein 7.2 (6.4-8.2) g/dL Albumin 3.8 (3.4-5.0) g/dL TSH, Ultra Sensitive 1.759 (0.358-3.740) mIU/mL Specimen Type Urine Color Urine Appearance Urine pH (5.0-9.0) Ur Specific Reading (1.005-1.030) Urine Protein (NEGATIVE) mg/dL Urine Glucose (UA) (NEGATIVE) mg/dL Urine Ketones (NEGATIVE) mg/dL Urine Occult Blood (NEGATIVE) Urine Nitrite (NEGATIVE) Urine Bilirubin (NEGATIVE) Urine Urobilinogen (0.2-1.0) E.U./dL Ur Leukocyte Esterase (NEGATIVE) Meds: Medications Discontinued Medications Generic Name Dose Route Start Last Admin Trade Name Freq PRN Reason Stop Dose Admin Sodium Chloride 1,000 mls @ 1,000 mls/hr 03/26/21 11:45 03/26/21 11:59 Normal Saline IV 1,000 mls/hr ASDIRECTED MARK Administration Sodium Chloride 10 ml 03/26/21 11:36 Sodium Chloride 0.9% 10 Ml Syringe FLUSH ASDIRECTED PRN Keep Vein Open - Radiology Interpretation Free Text/Narrative:: chest x-ray is negative for acute pathology. - Re-Assessments/Exams Free Text/Narrative Re-Assessment/Exam: Pt. was given a liter of normal saline in ER. She reported feeling much improved. She states that she was much less lightheaded, and states that her chest pain was resolved. troponin was repeated. Both troponin tests were negative. She did have a mildly elevated proBNP. Departure - Departure Time of Disposition: 16:30 Disposition: Home, Self-Care Clinical Impression: Atypical chest pain, Dehydration - Discharge Information Instructions: Dehydration, Adult, [id number], Nonspecific Chest Pain, Adult, [id number], Edema, [id number] Referrals: Ramya Liu PA-C [Primary Care Provider] - Forms: ED Department Discharge Additional Instructions: Follow-up tomorrow in at 11:00am for echocardiogram. Stress test at 9:30am on . I also suggest talking to your PCP about getting scheduled for a sleep study at some point. Also, per a previous clinic note, Dr. Herrera suggested that you seen cardiac electrophysiology for your slow heart rate which could also be contributing to your lightheadedness. Return to ER if you have chest pain, increased shortness of breath, worsening lightheadedness, or call if you have questions. Sepsis Event Note (ED) - Evaluation Sepsis Screening Result: No Definite Risk - Focused Exam Vital Signs: Vital Signs Temp Pulse Resp BP Pulse Ox 03/26/21 15:30 51 L 12 113/54 L 100 03/26/21 13:24 59 L 14 120/47 L 100 03/26/21 12:32 47 L 14 134/52 L 100 03/26/21 12:00 48 L 12 124/53 L 98 03/26/21 11:20 36.7 C 49 L 19 139/70 98 - Problem List Review Problem List Initiated/Reviewed/Updated: Yes - My Orders Last 24 Hours: My Active Orders 03/26/21 11:33 Chest 1V Frontal [CR] Stat 03/26/21 11:36 Peripheral IV Insertion Adult [OM.PC] Routine - Assessment/Plan Last 24 Hours: My Active Orders 03/26/21 11:33 Chest 1V Frontal [CR] Stat 03/26/21 11:36 Peripheral IV Insertion Adult [OM.PC] Routine Plan: Pt. was discharged. She was set up for echocardiogram as well as stress test this week. Results will be forwarded to Apple Liu, her PCP. She will return to ER if she has increased chest pain, shortness or breath, or palpitations. She was advised to stop using the lasix. I think this greatly contributed to her lightheadedness. Her urine was quite concentrated. Pt. was also advised to discuss a sleep study with PCP. She reports needing to get up to use the toilet 4-6 times per night. If she does have sleep apnea, it could be contributing to her edema and other symptoms as well in addition to her nocturia.
== END 2021-03-26 16:30 | disposition home or self-care (01) ==
LOC: LL.ED 11:16
DX: R07.89 Other chest pain (principal); E86.0 Dehydration; I25.10 Atherosclerotic heart disease of native coronary artery without angina pectoris; I10 Essential (primary) hypertension; Z79.899 Other long term (current) drug therapy
CPT/HCPCS: 36415; 71045; 80053; 81003; 83735; 83880; 84100; 84443; 84484; 85025; 85610; 85730; 86140; 93005; 99285; J7030; 93010; 99284

== ENCOUNTER 2021-04-04 10:14 | Emergency (ER) | payer BC ==
[2021-04-04] MEDS ORDERED: Sodium Chloride 0.9% 10 ML Syringe FLUSH PRN (10:43)
[2021-04-04 11:17] LABS: ANION GAP 8.3 meq/L (7-15); CHLORIDE,CL 107 mmol/L (98-107); SODIUM,NA 143 mmol/L (136-145)
--- NOTE | 2021-04-04 11:54 | EDM.PDOC ---
ED HPI GENERAL MEDICAL PROBLEM - General Chief Complaint: Chest Pain Stated Complaint: chest pain Time Seen by Provider: 04/04/21 10:24 Source of Information: Reports: Patient History Limitations: Reports: No Limitations - History of Present Illness INITIAL COMMENTS - FREE TEXT/NARRATIVE: Pt. presents to ER with complaints of respirophasic chest pain, cough, malaise, and generally not feeling well. Pt. was seen in ER on 03/26/2021 with complaints of lightheadedness, history of edema, and chest discomfort. She was not experiencing the cough or pain with breathing at that time. Labs, EKG, chest x- ray were normal at that time. Pt. did undergo an echo since then which showed mild aortic insufficiency. She was set up for a stress test but has not had it yet due to equipment problem. Pt. denies any fever or chills. No nausea, vomiting, or diarrhea. Denies any ill contacts. No lightheadedness or palpations. She states that the discomfort gets worse when she takes a deep breath. Chest Pain Pain Score (Numeric/FACES): 7 - Related Data Allergies Allergy/AdvReac Type Severity Reaction Status Date / Time No Known Allergies Allergy Verified 03/26/21 11:22 Home Meds: Home Meds Omeprazole 20 mg PO DAILY PRN 01/22/14 [History] Furosemide [Lasix] 20 mg PO DAILY PRN 05/03/20 [History] Losartan Potassium 25 mg PO BEDTIME 05/03/20 [History] Sertraline [Zoloft] 100 mg PO Q12HR 05/03/20 [History] amLODIPine [Norvasc] 10 mg PO DAILY 05/03/20 [History] Albuterol Sulfate [Albuterol Sulfate Hfa] 8.5 gm IH ASDIRECTED PRN #1 [id number] 05/04/20 [Rx] Albuterol/Ipratropium [Combivent Respimat] 1 gm INH QID inhaler 05/04/20 [Rx] Albuterol [Proventil Neb Soln] 1 each INH QID PRN 07/04/20 [History] Past Medical History HEENT History: Reports: Allergic Rhinitis, Impaired Vision, Other (See Below) Other HEENT History: Contact lenses, glasses Cardiovascular History: Reports: Arrhythmia, CAD, Heart Murmur, Hypertension, Syncope, Other (See Below) Other Cardiovascular History: Mild aortic valve insufficiency and tricuspid valve insufficiency by echocardiogram, bradycardia with previous syncopal episode requiring hospitalization on 01/02/10, first degree AV block on 11/20/11 Respiratory History: Reports: Bronchitis, Recurrent, Pneumonia, Recurrent, Other (See Below) Other Respiratory History: Despite chest x-ray findings no history of asthma with previous negative PFTs 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: Reports: Dysfunctional Uterine Bleeding, Fibroids, Other [employer] 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: Surgical 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 as below Musculoskeletal History: Reports: Arthritis, Back Pain, Chronic, Fracture, Osteoarthritis, Other (See Below) Other Musculoskeletal History: Right-sided Bansal's cyst, right distal fibular fracture on 01/22/14, scoliosis, patellar chondromalacia with grade 1 strain/tear of the medial collateral ligament of the left knee by MRI as below Neurological History: Reports: Brain Injury, Concussion, Headaches, Chronic, Migraines, Other (See Below) Other Neuro History: 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 secondary to syncopal episode Psychiatric History: Reports: Anxiety, Depression, Other (See Below) Other Psychiatric History: Chronic insomnia Endocrine/Metabolic History: Reports: Other (See Below) Other Endocrine/Metabolic History: 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 - Infectious Disease History Infectious Disease History: Reports: Chicken Pox, Mumps, Other (See Below) Other Infectious Disease History: swine flu in about 2006 - Past Surgical History HEENT Surgical History: Reports: Adenoidectomy, Tonsillectomy, Other (See Below) Other HEENT Surgeries/Procedures: Tonsillectomy and adenoidectomy at age 6 GI Surgical History: Reports: Appendectomy, Cholecystectomy, Other (See Below) Other GI Surgeries/Procedures: Appendectomy at age 26, laparoscopic cholecystectomy on 07/08/05 Female Surgical History: Reports: Hysterectomy, Other (See Below) Other Female Surgeries/Procedures: Laparoscopic partial hysterectomy secondary to dysfunctional uterine bleeding in 1996 Musculoskeletal Surgical History: Reports: Carpal Tunnel, Other (See Below) Other Musculoskeletal Surgeries/Procedures:: Right carpal tunnel release on 09/11/11 - Past Imaging History Past Imaging History: Reports: Cardiac Echo, CAT Scan, Mammogram, MRI, PFT, Stress Testing, Ultrasound, Venous Doppler, Other (See Below) Social & Family History - Family History Cardiac: Reports: Bypass, CAD, High Cholesterol, Hypertension, [place], Other (See Below) Other Cardiac Family History: Father with initial [place] in his 50s with 4 vessel CABG in his late 50s early 60s, paternal grandfather with fatal [place] in his 60s, paternal aunt with three-vessel CABG in her late 50s, sister with hyperlipidemia, hypertension in mother and 2 sisters, Respiratory: Reports: Asthma, Other (See Below) Other Respiratory Family Hisory: Son with asthma Neurological: Reports: Migraines, Other (See Below) Other Neurological Family History: migraine headaches in sister, son, and daughter Psychiatric: Reports: Anxiety, Depression, Other (See Below) Other Psychiatric Family History: Daughter with severe anxiety aggression disor minal Endocrine/Metabolic: Reports: Hypothyroidism, Other (See Below) Other Endocrine/Metabolic Family History: Mother with hypothyroidism Oncologic: Reports: Breast, Other (See Below) Other Oncologic Family History: Paternal grandmother with breast cancer - Caffeine Use Caffeine Use: Reports: Soda (One soda per day). Denies: Coffee, Energy Drinks, Tea - Living Situation & Occupation Living situation: Reports: , Alone Occupation: Employed ED ROS GENERAL - Review of Systems Review Of Systems: See Below Constitutional: Reports: No Symptoms HEENT: Reports: No Symptoms Respiratory: Reports: No Symptoms Cardiovascular: Reports: Chest Pain Endocrine: Reports: No Symptoms GI/Abdominal: Reports: No Symptoms : Reports: No Symptoms Musculoskeletal: Reports: No Symptoms Skin: Reports: No Symptoms Neurological: Reports: No Symptoms Psychiatric: Reports: No Symptoms Hematologic/Lymphatic: Reports: No Symptoms Immunologic: Reports: No Symptoms ED EXAM, GENERAL - Physical Exam Exam: See Below Exam Limited By: No Limitations General Appearance: Alert, WD/WN, No Apparent Distress Throat/Mouth: Normal Inspection, Normal Lips, Normal Teeth, Normal Gums, Normal Oropharynx, Normal Voice, No Airway Compromise Head: Atraumatic, Normocephalic Respiratory/Chest: No Respiratory Distress, No Accessory Muscle Use, Decreased Breath Sounds, Other (L anterior chest pain, worse with deep breathing) Cardiovascular: Normal Peripheral Pulses, Regular Rate, Rhythm, No Edema, No JVD, No Murmur GI/Abdominal: Soft, Non-Tender, No Distention, No Mass Extremities: Normal Inspection, Normal Range of Motion, No Pedal Edema, Normal Capillary Refill Neurological: Alert, Oriented, CN II-XII Intact, Normal Cognition, Normal Gait, Normal Reflexes, No Motor/Sensory Deficits Psychiatric: Normal Affect, Normal Mood #1 Interpretation Rhythm: NSR [place]: Normal P-Wave: Present QRS: Normal ST-T: Normal QT: Normal Course - Vital Signs Last Recorded V/S: Last Vital Signs Temp 36.7 C 04/04/21 10:44 Pulse 56 L 04/04/21 10:44 Resp 16 04/04/21 10:44 BP 134/46 L 04/04/21 10:44 Pulse Ox 97 04/04/21 10:44 - Orders/Labs/Meds Orders: Active Orders 24 hr Category Date Time Status EKG Documentation Completion [RC] ASDIRECTED Care 04/04/21 10:45 Active Peripheral IV Care [RC] . DIRECTED Care 04/04/21 10:45 Active Chest 1V Frontal [CR] Stat Exams 04/04/21 10:44 Taken CORONAVIRUS COVID-19 MIGUEL [MOLEC] Stat Lab 04/04/21 11:20 Ordered INFLUENZA A+B AG SCREEN [RM] Stat Lab 04/04/21 10:44 Ordered Sodium Chloride 0.9% [Saline Flush] Med 04/04/21 10:43 Active 10 ml FLUSH ASDIRECTED PRN Isolation [COMM] Routine Oth 04/04/21 10:45 Active Peripheral IV Insertion Adult [OM.PC] Routine Oth 04/04/21 10:44 Ordered Medication Orders Sodium Chloride (Sodium Chloride 0.9% 10 Ml Syringe) 10 ml FLUSH ASDIRECTED PRN PRN Reason: Keep Vein Open Labs: Laboratory Tests 04/04/21 04/04/21 04/04/21 Range/Units 10:25 10:25 10:25 WBC 6.6 (4.0-10.2) K/uL RBC 4.37 (3.77-5.09) M/uL Hgb 13.0 (11.7-15.5) g/dL Hct 38.8 (34.0-46.0) % MCV 88.8 (84.0-98.0) fL MCH 29.7 (28.2-33.3) pg MCHC 33.5 (31.7-36.0) g/dL RDW 14.1 (11.2-14.1) % Plt Count 252 (150-350) K/uL Neut % (Auto) 48.2 (45.0-80.0) % Lymph % (Auto) 40.9 (10.0-50.0) % [place] % (Auto) 8.7 (2.0-14.0) % Eos % (Auto) 2.0 (0.0-5.0) % Baso % (Auto) 0.2 (0.0-2.0) % Neut # (Auto) 3.20 (1.40-7.00) K/uL Lymph # (Auto) 2.71 (0.50-3.50) K/uL [place] # (Auto) 0.58 (0.00-1.00) K/uL Eos # (Auto) 0.13 (0.00-0.50) K/uL Baso # (Auto) 0.01 (0.00-0.20) K/uL PT 10.1 (9.5-12.0) SEC INR 1.0 D-Dimer, Quantitative (0-400) ng/mL Sodium 143 (136-145) mmol/L Potassium 3.6 (3.5-5.1) mmol/L Chloride 107 (98-107) mmol/L Carbon Dioxide 27.7 (21.0-32.0) mmol/L Anion Gap 8.3 (7-15) meq/L BUN 13 (7-18) mg/dL Creatinine 0.97 (0.51-1.17) mg/dL Est Cr Clr Drug Dosing TNP Estimated GFR (MDRD) 59 mL/min Glucose 144 H (70-99) mg/dL Calcium 8.6 (8.5-10.1) mg/dL Phosphorus 3.5 (2.6-4.7) mg/dL Magnesium 2.3 (1.8-2.4) mg/dL Total Bilirubin 0.5 (0.2-1.0) mg/dL AST 19 (15-37) U/L ALT 28 (12-78) U/L Alkaline Phosphatase 81 (46-116) IU/L Troponin I High Sens 5 (<=51) ng/L C-Reactive Protein 1.2 H (<=0.9) mg/dL NT-Pro-B Natriuret Pep 157 H (0-125) pg/mL Total Protein 6.8 (6.4-8.2) g/dL Albumin 3.5 (3.4-5.0) g/dL 04/04/21 Range/Units 10:25 WBC (4.0-10.2) K/uL RBC (3.77-5.09) M/uL Hgb (11.7-15.5) g/dL Hct (34.0-46.0) % MCV (84.0-98.0) fL MCH (28.2-33.3) pg MCHC (31.7-36.0) g/dL RDW (11.2-14.1) % Plt Count (150-350) K/uL Neut % (Auto) (45.0-80.0) % Lymph % (Auto) (10.0-50.0) % [place] % (Auto) (2.0-14.0) % Eos % (Auto) (0.0-5.0) % Baso % (Auto) (0.0-2.0) % Neut # (Auto) (1.40-7.00) K/uL Lymph # (Auto) (0.50-3.50) K/uL [place] # (Auto) (0.00-1.00) K/uL Eos # (Auto) (0.00-0.50) K/uL Baso # (Auto) (0.00-0.20) K/uL PT (9.5-12.0) SEC INR D-Dimer, Quantitative 120 (0-400) ng/mL Sodium (136-145) mmol/L Potassium (3.5-5.1) mmol/L Chloride (98-107) mmol/L Carbon Dioxide (21.0-32.0) mmol/L Anion Gap (7-15) meq/L BUN (7-18) mg/dL Creatinine (0.51-1.17) mg/dL Est Cr Clr Drug Dosing Estimated GFR (MDRD) mL/min Glucose (70-99) mg/dL Calcium (8.5-10.1) mg/dL Phosphorus (2.6-4.7) mg/dL Magnesium (1.8-2.4) mg/dL Total Bilirubin (0.2-1.0) mg/dL AST (15-37) U/L ALT (12-78) U/L Alkaline Phosphatase (46-116) IU/L Troponin I High Sens (<=51) ng/L C-Reactive Protein (<=0.9) mg/dL NT-Pro-B Natriuret Pep (0-125) pg/mL Total Protein (6.4-8.2) g/dL Albumin (3.4-5.0) g/dL Meds: Medications Generic Name Dose Route Start Last Admin Trade Name Freq PRN Reason Stop Dose Admin Sodium Chloride 10 ml 04/04/21 10:43 Sodium Chloride 0.9% 10 Ml Syringe FLUSH ASDIRECTED PRN Keep Vein Open - Radiology Interpretation Free Text/Narrative:: chest x-ray negative for acute pathology Departure - Departure Time of Disposition: 11:57 Disposition: Home, Self-Care 01 Clinical Impression: Bronchitis, Chest pain, atypical - Discharge Information Instructions: Acute Bronchitis, Adult, [id number], Doxycycline tablets or capsules, Nonspecific Chest Pain, Adult, [id number], Prednisone tablets Referrals: Ramya Liu PA-C [Primary Care Provider] - Forms: ED Department Discharge Additional Instructions: Prednisone 20mg 2 tabs daily for 6 days Doxycycline 100mg 1 tab twice daily for 10 days Recheck in clinic in 10-14 days, sooner if not gradually improving. Return to ER if worsening discomfort, shortness of breath, lightheadedness, or palpitations. Sepsis Event Note (ED) - Evaluation Sepsis Screening Result: No Definite Risk - Focused Exam Vital Signs: Vital Signs Temp Pulse Resp BP Pulse Ox 04/04/21 10:44 36.7 C 56 L 16 134/46 L 97 04/04/21 10:24 36.7 C 56 L 15 135/59 L 98 - Problem List Review Problem List Initiated/Reviewed/Updated: Yes - My Orders Last 24 Hours: My Active Orders 04/04/21 10:43 Sodium Chloride 0.9% [Saline Flush] 10 ml FLUSH ASDIRECTED PRN 04/04/21 10:44 Chest 1V Frontal [CR] Stat INFLUENZA A+B AG SCREEN [RM] Stat Peripheral IV Insertion Adult [OM.PC] Routine 04/04/21 10:45 EKG Documentation Completion [RC] ASDIRECTED Peripheral IV Care [RC] . DIRECTED Isolation [COMM] Routine 04/04/21 11:20 CORONAVIRUS COVID-19 MIGUEL [MOLEC] Stat - Assessment/Plan Last 24 Hours: My Active Orders 04/04/21 10:43 Sodium Chloride 0.9% [Saline Flush] 10 ml FLUSH ASDIRECTED PRN 04/04/21 10:44 Chest 1V Frontal [CR] Stat INFLUENZA A+B AG SCREEN [RM] Stat Peripheral IV Insertion Adult [OM.PC] Routine 04/04/21 10:45 EKG Documentation Completion [RC] ASDIRECTED Peripheral IV Care [RC] . DIRECTED Isolation [COMM] Routine 04/04/21 11:20 CORONAVIRUS COVID-19 MIGUEL [MOLEC] Stat Plan: Prednisone 20mg 2 tabs daily for 6 days Doxycycline 100mg 1 tab twice daily for 10 days Recheck in clinic in 10-14 days, sooner if not gradually improving. Return to ER if worsening discomfort, shortness of breath, lightheadedness, or palpitations.
[2021-04-04 12:21] VITALS: PULSE 53
[2021-04-04 12:22] VITALS: BP 136/64
== END 2021-04-04 12:10 | disposition home or self-care (01) ==
LOC: LL.ED 10:14
DX: J40 Bronchitis, not specified as acute or chronic (principal); I10 Essential (primary) hypertension; I25.10 Atherosclerotic heart disease of native coronary artery without angina pectoris; Z79.899 Other long term (current) drug therapy; Z20.822 Contact with and (suspected) exposure to COVID-19
CPT/HCPCS: 36415; 71045; 80053; 83735; 83880; 84100; 84484; 85025; 85379; 85610; 86140; 87804; 93005; 93010; 99284; 99285-25; U0002

== ENCOUNTER 2022-09-05 15:00 | Observation (INO) | payer OTHER ==
[2022-09-05] MEDS ORDERED: Sodium Chloride 0.9% 10 ML Syringe FLUSH PRN (15:10)
[2022-09-05] MEDS ORDERED: Meclizine 25 MG Tab PO ONE (15:30)
[2022-09-05] MEDS ORDERED: Sodium Chloride 0.9% 1,000 ML IV ONE (15:30)
[2022-09-05 15:56] LABS: CHLORIDE,CL 102 mmol/L (98-107); SODIUM,NA 141 mmol/L (136-145)
[2022-09-05 16:00] LABS: ANION GAP 11.7 meq/L (7-15); ESTIMATED GFR 49 mL/min (>=60)
[2022-09-05] MEDS ORDERED: Potassium Chloride 20 MEQ Tab.ER PO ONE ×3 (16:18→22:00)
[2022-09-05] MEDS ORDERED: Iopamidol 612 MG/ML 100 ML Bottle IVPUSH ONE (16:34)
[2022-09-05 16:45] LABS: CORONAVIRUS COVID-19 NAA NEGATIVE (NEGATIVE); RESPIRATORY SYNCYTIAL VIR NAA NEGATIVE (NEGATIVE)
[2022-09-05] MEDS: Potassium Chloride Riders 10 MEQ in Premix Bag 1 BAG IV SCH ×3 (17:04→19:06)
[2022-09-05] MEDS ORDERED: methylPREDNISolone Sodium Succinate 125 MG/2 ML SDV IVPUSH ONE (18:45)
[2022-09-05] MEDS ORDERED: Potassium Chloride Riders 10 MEQ in Premix Bag 1 BAG IV ONE (20:00)
[2022-09-05] MEDS ORDERED: Losartan 25 MG Tab PO SCH (20:00)
[2022-09-05] MEDS: Sertraline 50 MG Tab PO SCH (20:12)
[2022-09-05] MEDS: Albuterol/Ipratropium 3.0-0.5 MG/3 ML Neb Soln NEB SCH (20:13)
[2022-09-05] MEDS: Benzonatate 100 MG Cap PO SCH (21:15)
[2022-09-05] MEDS: Sodium Chloride 0.9% 1,000 ML IV SCH (22:40)
[2022-09-06] MEDS: Albuterol/Ipratropium 3.0-0.5 MG/3 ML Neb Soln NEB SCH ×2 (01:52→07:17)
[2022-09-06 04:09] VITALS: BP 153/74; PULSE 70
[2022-09-06] MEDS ORDERED: Potassium Chloride 20 MEQ Tab.ER PO ONE (06:00)
[2022-09-06] MEDS: Sodium Chloride 0.9% 1,000 ML IV SCH (06:38)
[2022-09-06] MEDS: Benzonatate 100 MG Cap PO SCH (07:17)
[2022-09-06] MEDS: Sertraline 50 MG Tab PO SCH (07:18)
[2022-09-06] MEDS ORDERED: methylPREDNISolone Sodium Succinate 40 MG/1 ML SDV IVPUSH ONE (08:00)
[2022-09-06] MEDS ORDERED: Hydrochlorothiazide/Triamterene 50-75 MG Tab PO SCH (08:00)
[2022-09-06 08:31] LABS: ANION GAP 9.3 meq/L (7-15)
[2022-09-06] MEDS ORDERED: Acetaminophen 325 MG Tab PO PRN (09:10)
== END 2022-09-06 10:55 | disposition home or self-care (01) ==
LOC: LL.ED 15:00 → LL.MS 16:29
PROVIDERS: ADMIT Emergency Medicine; ATTEND Emergency Medicine
DX: E87.6 Hypokalemia (principal); J98.8 Other specified respiratory disorders; J45.41 Moderate persistent asthma with (acute) exacerbation; I10 Essential (primary) hypertension; I25.10 Atherosclerotic heart disease of native coronary artery without angina pectoris; G43.709 Chronic migraine without aura, not intractable, without status migrainosus; F41.9 Anxiety disorder, unspecified; F32.A Depression, unspecified; F51.04 Psychophysiologic insomnia; Z20.822 Contact with and (suspected) exposure to COVID-19; Z79.899 Other long term (current) drug therapy
CPT/HCPCS: 0241U; 36415; 71260; 80048; 80053; 81003; 83605; 83735; 83880; 84132; 85025; 85379; 94640; 96361; 96365; 96366; 96375; 96376; 99285; A9270-GY; G0378; J2920; J2930; J3480; J3490; J7030; J7620-GY; Q9967